=== PATIENT | male | born 1945 | race Caucasian/White ===

== ENCOUNTER 2025-03-24 19:10 | Emergency (ER) | payer SELFPAY ==
[~2025-03-24] VITALS: Ht 167.6 cm; Wt 75.0 kg
[2025-03-24 19:13] VITALS: O2SAT 100
[2025-03-24] MEDS: ACETAMINOPHEN 325MG TABLET PO ONE (21:00)
[2025-03-24] MEDS: TETANUS, DIPHTHERIA, PERTUSSIS VAC/PF 0.5ML (>10YR OLD) IM ONE (21:01)
[2025-03-24 22:55] VITALS: BP 144/72; PULSE 68; RESP 16; TEMP 36.8; O2SAT 98
== END 2025-03-24 22:56 | disposition home or self-care (01) ==
LOC: ER 19:10
DX: S05.11XA Contusion of eyeball and orbital tissues, right eye, initial encounter (principal); M25.562 Pain in left knee; Z23 Encounter for immunization; W10.9XXA Fall (on) (from) unspecified stairs and steps, initial encounter; Y93.89 Activity, other specified; Y92.89 Other specified places as the place of occurrence of the external cause; Y99.8 Other external cause status
CPT/HCPCS: 73562; 70450; 70486; 72125; 90715; 90471; 99285; Z7610 ×2